=== PATIENT | male | born 1980 | race Caucasian/White ===

== ENCOUNTER 2022-11-22 12:56 | Emergency (ER) | payer MEDICARE, SELFPAY ==
[2022-11-22 13:04] VITALS: BP 125/94; PULSE 109; RESP 20; TEMP 37.3; O2SAT 99; BMI 22.8
--- NOTE | 2022-11-22 13:10 | ED.MALEGU1 ---
HPI - Male Genitourinary General Chief complaint: Urogenital-Male Stated complaint: URINARY RETENTION Time Seen by Provider: 11/22/22 13:10 Source: patient Mode of arrival: Wheelchair Limitations: no limitations History of Present Illness HPI Narrative: Patient presents to emergency department complaining of acute urinary retention. Patient states he has not urinated in the last 12 hours. He denies any fever, chills. Denies any previous history of this. He does not take any new medications. He denies any trauma.Patient has a history of multiple trauma with multiple surgeries in the past. He is on multiple narcotics he states he just has discomfort over his abdomen in the suprapubic area. Related Data Allergies Allergy/AdvReac Type Severity Reaction Status Date / Time Penicillins Allergy Verified 11/22/22 13:02 Review of Systems ROS Status of ROS 10 or more systems reviewed and unremarkable except as noted in history and below [facility] Social History Smoking status: Never smoker Exam Narrative Exam Narrative: Nurses notes and vital signs reviewed and patient is not hypoxic. General: Nontoxic, chronic ill and in no apparent distress. Skin: Warm, dry, no pallor noted. No Rash Head: Normocephalic, atraumatic. Neck: Supple, non-tender. Eye: Pupils are equal, round and EOMI. No scleral icterus. Ears, Nose, Mouth, and Throat: TM clear, no posterior oropharynx erythema or nasal mucosal hypertrophy, uvula is mid-line Oral mucosa is moist Cardiovascular: Regular Rate and Rhythm without murmur, gallop or rub. Respiratory: No accessory muscle use or respiratory distress. Lungs are clear to auscultation, no wheezing, rales or rhonchi Chest Wall: no tenderness Back: No midline thoracic or lumbar vertebral tenderness. No CVA tenderness Musculoskeletal: normal ROM, no calf or popliteal tenderness, no lower extremity edema/swelling GI: Abdomen is soft, non-distended. Normal bowel sounds. No masses appreciated. Suprapubic fullness and tenderness to palpation. No rebound, guarding, or rigidity noted. Neurological: A&O x4. No cranial nerve dysfunction observed. No truncal ataxia. Moves all extremities. Sensation intact. Psychiatric: Cooperative and interactive. Normal mood and affect. Constitutional Vital Signs, click to edit/add: Last Vital Signs Temp 99.2 F 11/22/22 13:04 Pulse 100 H 11/22/22 16:09 Resp 14 11/22/22 16:09 BP 135/91 11/22/22 16:09 Pulse Ox 99 11/22/22 16:09 O2 Del Method Room Air 11/22/22 16:09 Course Vital Signs Vital signs: Vital Signs Temperature 99.2 F 11/22/22 13:04 Pulse Rate 109 H 11/22/22 13:04 Respiratory Rate 20 11/22/22 13:04 Blood Pressure 125/94 H 11/22/22 13:04 Pulse Oximetry 99 11/22/22 13:04 Temperature 99.2 F 11/22/22 13:04 Pulse Rate 100 H 11/22/22 16:09 Respiratory Rate 14 11/22/22 16:09 Blood Pressure 135/91 11/22/22 16:09 Pulse Oximetry 99 11/22/22 16:09 Oxygen Delivery Method Room Air 11/22/22 16:09 MDM - Male Genitourinary MDM Narrative Medical decision making narrative: Bladder scan showed over 700 mL. Full catheter was inserted by Kailee and 1000ml straw urine Was obtained. Patient's symptoms improved. He felt much better. Because of the hematuria and the patient continued to complain of pain a CT scan abdomen and pelvis was done which showed nephrolithiasis. Patient advised to keep Rollins. He is able to follow-up as an outpatient with primary care doctor and urology. At this time the patient is without objective evidence of an acute process requiring hospitalization or inpatient management. The patient has remained hemodynamically stable. No additional indication for emergent studies at this time. I answered all questions. Discussed discharge instructions including standard anticipatory guidance and what should prompt a return to the emergency department, including if they get worse are not getting better or develops any new or concerning symptoms. I've given them specific time frame in which to follow-up, and who to follow-up with. The patient demonstrates understanding. Patient is nontoxic and stable for discharge with outpatient follow-up. This note was created with the assistance of a speech recognition program. Although the intention is to generate documents that actually reflects the content of the visit, no guarantees can be provided that every mistake has been identified and corrected by editing. Differential Diagnosis Differential diagnosis: Likely urinary tract infection, urethritis and acute retention of urine Lab Data Attestation: I reviewed the patient's lab results. Labs: Lab Results 11/22/22 11/22/22 Range/Units 13:35 14:27 WBC 12.4 H (4.0-11.0) 10^3/uL RBC 3.77 L (4.70-6.10) 10^6/uL Hgb 11.0 L (14.0-18.0) g/dL Hct 33.5 L (42.0-54.0) % MCV 88.9 (80.0-94.0) fL MCH 29.2 (25.9-34.0) pg MCHC 32.8 (29.9-35.2) g/dL RDW 14.0 (11.0-15.0) % Plt Count 301 (150-450) 10^3/uL MPV 9.8 (9.5-13.5) fL Neut % (Auto) 72.8 (43.0-75.0) % Lymph % (Auto) 15.8 L (20.5-60.0) % [place] % (Auto) 5.9 (1.7-12.0) % Eos % (Auto) 4.7 (0.9-7.0) % Baso % (Auto) 0.4 (0.2-2.0) % Neut # (Auto) 9.0 H (1.4-6.5) 10^3/uL Lymph # (Auto) 2.0 (1.2-3.8) 10^3/uL [place] # (Auto) 0.7 (0.3-0.8) 10^3/uL Eos # (Auto) 0.6 (0.0-0.7) 10^3/uL Baso # (Auto) 0.1 (0.0-0.1) 10^3/uL Abs Immat Gran (auto) 0.05 H (0.00-0.03) 10^3/uL Imm/Tot Granulo (auto) 0.4 (0.0-0.5) % Sodium 137 (136-145) mmol/L Potassium 4.1 (3.5-5.1) mmol/L Chloride 103 (98-107) mmol/L Carbon Dioxide 27.0 (21.0-32.0) mmol/L Anion Gap 11.1 BUN 40.0 H (7.0-18.0) mg/dL Creatinine 1.90 H (0.70-1.30) mg/dL Est GFR ( Amer) 48 L (>=60) Est GFR (Non-Af Amer) 39 L (>=60) BUN/Creatinine Ratio 21.1 Glucose 111 H (74-106) mg/dL Calcium 8.9 (8.5-10.1) mg/dL Urine Color Yellow (YELLOW) Urine Clarity Clear (CLEAR) Urine pH 5.5 (5.0-9.0) Ur Specific [place] 1.020 (1.005-1.025) Urine Protein Negative (NEG/TRACE) mg/dL Urine Glucose (UA) Negative (NEGATIVE) mg/dL Urine Ketones Negative (NEGATIVE) mg/dL Urine Occult Blood Large A (NEGATIVE) Urine Nitrite Negative (NEGATIVE) Urine Bilirubin Negative (NEGATIVE) Urine Urobilinogen 0.2 (0.2-1.0) EU/dL Ur Leukocyte Esterase Negative (NEGATIVE) Urine RBC 10-20 A (0-2) #/HPF Urine WBC 0-2 A (NONE SEEN) #/HPF Ur Squamous Epith Cells Rare (NONE/RARE) #/LPF Urine Crystals None seen (None Seen) #/HPF Urine Bacteria Trace A (NONE SEEN) #/HPF Urine Casts Seen A (NONE SEEN) #/LPF Hyaline Casts Rare Urine Mucus None seen (NONE SEEN) Ur Culture Indicated? No Discharge Plan Discharge Chief Complaint: Urogenital-Male Clinical Impression: Acute urinary retention, Bilateral nephrolithiasis Patient Disposition: Home, Self-Care Time of Disposition Decision: 15:37 Condition: Good Mode of Transportation: Private Vehicle Instructions: Kidney Stones (ED), Urinary Retention in Men (ED), Rollins Catheter Placement and Care (ED) Stand Alone Forms: Portal Instructions Referrals: Elisabet Engel MD [Primary Care Provider] - 1 week Misael Chua MD [Physician] - 1 week Discharge Date/Time: 11/22/22 16:14
[2022-11-22] MEDS: LIDOCAINE 2% JELLY 10 ML UR (13:30)
[2022-11-22 13:50] LABS: Bilirubin Urine NEGATIVE (NEGATIVE); Blood Urine LARGE (NEGATIVE); Clarity Urine CLEAR (CLEAR); Color Urine YELLOW (YELLOW); Glucose Urine UA NEGATIVE (NEGATIVE); Ketones Urine NEGATIVE (NEGATIVE); Leukocyte Esterase Urine NEGATIVE (NEGATIVE); Nitrite Urine NEGATIVE (NEGATIVE); Protein Urine NEGATIVE (NEG/TRACE); Urine Microscopic Indicated YES; Urobilinogen Urine 0.2 EU/dL (0.2-1.0); pH Urine 5.5 (5.0-9.0)
--- NOTE | 2022-11-22 13:54 | CT_ITS ---
[address] [address] Patient Name: RAJINDER KELLER MRN: [id number] date: 1980 Sex: M Assigned Patient Location: ER Current Patient Location: Accession/Order Number: [id number] Exam Date: 11/22/2022 14:40 Report Date: 11/22/2022 15:13 At the request of: MICHAEL DSOUZA Procedure: CT abdomen pelvis wo con EXAMINATION: CT abdomen pelvis wo con HISTORY: acute urinary retention, hematuria , dysuria COMPARISON: No relevant comparison available. TECHNIQUE: Axial, Coronal, and Sagittal images were obtained without and/or with IV contrast as indicated by examination type. Dose reduction techniques were achieved by using automated exposure control and/or adjustment of mA and/or kV according to patient size and/or use of iterative reconstruction technique. FINDINGS: LUNG BASES: No visible pulmonary or pleural disease. LIVER: No enlargement, atrophy, suspicious density, or significant focal lesion. BILIARY: No dilatation or calcification. PANCREAS: No lesion, fluid collection, or abnormal duct dilatation. SPLEEN: No enlargement or focal lesion. ADRENALS: No mass or enlargement. KIDNEYS: 10 x 9 x 6 mm nonobstructing stone within right renal pelvis. Nonobstructing 1 mm stone within left kidney inferior pole. Unremarkable ureters. BOWEL/MESENTERY: No visible mass, obstruction, or bowel wall thickening. Normal appendix. AORTA/VASCULAR: No aneurysm or dissection. RETROPERITONEUM: No mass or adenopathy. LYMPH NODES: No adenopathy. URINARY BLADDER: Rollins catheter within bladder and moderate amount of free air; likely secondary to introduction of catheter. Mild edema/fat stranding surrounding the bladder, but no bladder wall thickening. Small amount of layering hyperdensity within posterior aspect of the bladder suspected to represent a collection of fine granular stones. PELVIC ORGANS: No visible mass. Pelvic organs appropriate for patient age. ABDOMINAL WALL: No mass or hernia. BONES: No bony lesion or fracture. OTHER: Negative. CT/CT abdomen pelvis wo con IMPRESSION: 1.Nonobstructing right nephrolithiasis.10 mm nonobstructing stone within right renal pelvis which may be intermittently adding to patient's symptoms. 2. Suspect collection of tiny granular stones layering within the urinary bladder. No ureteral stones. 3. Mild edema surrounding the urinary bladder, but no bladder wall thickening. Consider cystitis. Electronically authenticated by: JULIA SMITH Date: 11/22/2022 15:13
[2022-11-22 14:03] LABS: Bacteria Urine TRACE #/HPF (NONE SEEN); Cast Seen? SEEN #/LPF (NONE SEEN); Crystals Seen? None Seen #/HPF (None Seen); Hyaline Casts Urine RARE; Mucus Urine NONE SEEN (NONE SEEN); Squamous Epithelial Cell Urine RARE #/LPF (NONE/RARE); WBC Urine 0-2 #/HPF (NONE SEEN)
[2022-11-22 14:04] LABS: Urine Culture Indicated NO
[2022-11-22 14:52] LABS: Basophils Absolute Auto 0.1 10^3/uL (0.0-0.1); Basophils Percent Auto 0.4 % (0.2-2.0); Eosinophils Absolute Auto 0.6 10^3/uL (0.0-0.7); Eosinophils Percent Auto 4.7 % (0.9-7.0); Hematocrit 33.5 % (42.0-54.0); Immature Granulocytes Abs Auto 0.05 10^3/uL (0.00-0.03); Immature Granulocytes Pct Auto 0.4 % (0.0-0.5); Lymphocytes Percent Auto 15.8 % (20.5-60.0); Mean Corpuscular HGB Conc 32.8 g/dL (29.9-35.2); Mean Corpuscular Hemoglobin 29.2 pg (25.9-34.0); Mean Corpuscular Volume 88.9 fL (80.0-94.0); Mean Platelet Volume 9.8 fL (9.5-13.5); Monocytes Absolute Auto 0.7 10^3/uL (0.3-0.8); Monocytes Percent Auto 5.9 % (1.7-12.0); Neutrophils Percent Auto 72.8 % (43.0-75.0); Platelet Count 301 10^3/uL (150-450); Red Blood Count 3.77 10^6/uL (4.70-6.10); White Blood Count 12.4 10^3/uL (4.0-11.0)
[2022-11-22 14:59] LABS: Anion Gap 11.1; BUN Creatinine Ratio 21.1; Calcium 8.9 mg/dL (8.5-10.1); Chloride 103 mmol/L (98-107); Estimated GFR (African America 48 (>=60); Estimated GFR (Non-African Ame 39 (>=60); Glucose 111 mg/dL (74-106); Potassium 4.1 mmol/L (3.5-5.1); Sodium 137 mmol/L (136-145)
[2022-11-22 16:09] VITALS: BP 135/91; PULSE 100; RESP 14; O2SAT 99
== END 2022-11-22 16:14 | disposition home or self-care (01) ==
PROVIDERS: Emergency Provider Emergency Medicine; PCP Family Medicine
DX: R33.9 Retention of urine, unspecified (principal); N20.0 Calculus of kidney
CPT/HCPCS: 36415; 51798; 74176; 80048; 81001; 85025; 99284

== ENCOUNTER 2022-12-10 09:11 | Outpatient (OUT) | payer MEDICARE, SELFPAY ==
--- NOTE | 2022-12-10 09:18 | XR_ITS ---
The [address] [address] Patient Name: RAJINDER KELLER MRN: [id number] date: 1980 Sex: M Assigned Patient Location: RAD Current Patient Location: RAD Accession/Order Number: [id number] Exam Date: 12/10/2022 09:20 Report Date: 12/10/2022 09:44 At the request of: RACQUEL CAMILO Procedure: XR abdomen 1V EXAM: XR abdomen 1V HISTORY: Kidney Stone N20.0 COMPARISON: None. TECHNIQUE: AP view of the abdomen. FINDINGS: Nonobstructive bowel gas pattern is noted. There is no suspicious calcification. The osseous structures are intact. XR/XR abdomen 1V IMPRESSION: Nonobstructive bowel gas pattern. Electronically authenticated by: NELI HENNESSY Date: 12/10/2022 09:44
== END 2022-12-10 09:12 | disposition home or self-care (01) ==
LOC: RAD 09:11
PROVIDERS: PCP Family Medicine; Visit Provider Urology
DX: N20.0 Calculus of kidney (principal)
CPT/HCPCS: 74018

== ENCOUNTER 2022-12-30 12:29 | Outpatient (OUT) | payer MEDICARE, SELFPAY ==
--- NOTE | 2022-12-30 13:14 | ECG_ITS ---
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
[2022-12-30 13:34] LABS: Basophils Percent Auto 0.4 % (0.2-2.0); Eosinophils Percent Auto 0.4 % (0.9-7.0); Hematocrit 34.7 % (42.0-54.0); Hemoglobin 11.3 g/dL (14.0-18.0); Immature Granulocytes Abs Auto 0.02 10^3/uL (0.00-0.03); Immature Granulocytes Pct Auto 0.2 % (0.0-0.5); Lymphocytes Absolute Auto 1.6 10^3/uL (1.2-3.8); Lymphocytes Percent Auto 14.8 % (20.5-60.0); Mean Corpuscular HGB Conc 32.6 g/dL (29.9-35.2); Mean Corpuscular Hemoglobin 29.5 pg (25.9-34.0); Mean Corpuscular Volume 90.6 fL (80.0-94.0); Mean Platelet Volume 9.3 fL (9.5-13.5); Monocytes Absolute Auto 0.6 10^3/uL (0.3-0.8); Monocytes Percent Auto 5.5 % (1.7-12.0); Neutrophils Absolute Auto 8.5 10^3/uL (1.4-6.5); Neutrophils Percent Auto 78.7 % (43.0-75.0); Platelet Count 426 10^3/uL (150-450); Red Blood Count 3.83 10^6/uL (4.70-6.10); Red Cell Distribution Width 13.5 % (11.0-15.0); White Blood Count 10.8 10^3/uL (4.0-11.0)
[2022-12-30 13:48] LABS: INR 1.04; Partial Thromboplastin Time 29.9 sec (22.3-36.2)
[2022-12-30 14:39] LABS: Anion Gap 12.9; BUN Creatinine Ratio 16.2; Calcium 9.5 mg/dL (8.5-10.1); Carbon Dioxide 26.1 mmol/L (21.0-32.0); Chloride 104 mmol/L (98-107); Estimated GFR (African America >60 (>=60); Estimated GFR (Non-African Ame >60 (>=60); Glucose 132 mg/dL (74-106); Sodium 139 mmol/L (136-145)
== END 2022-12-30 12:30 | disposition home or self-care (01) ==
LOC: PST 12:30
PROVIDERS: PCP Family Medicine; Visit Provider Urology
DX: Z01.810 Encounter for preprocedural cardiovascular examination (principal); Z01.812 Encounter for preprocedural laboratory examination; N20.0 Calculus of kidney; R33.9 Retention of urine, unspecified; F41.9 Anxiety disorder, unspecified; G89.29 Other chronic pain
CPT/HCPCS: 80048; 85025; 85610; 85730; 93005

== ENCOUNTER 2023-01-09 08:02 | Outpatient (OUT) | payer MEDICARE, SELFPAY ==
--- NOTE | 2023-01-09 09:05 | CA_ITS ---
Patient: RAJINDER KELLER Exam Date: 01/09/2023 : 1980 Gender:M Ordering : YANELY BENÍTEZ Admission #: [id number] Family : DR NarvaezMisael Chua . Order #: [id number] CLICK HERE TO VIEW EXAM ECHOCARDIOGRAM REPORT PROCEDURE: CA ECHO DOPPLER COMPLETE INDICATIONS: Tachycardia COMPARISON: None. DESCRIPTION: COMPLETE ECHOCARDIOGRAM Real-time transthoracic echocardiography with 2D, M-mode, spectral and color flow Doppler performed. QUALITY: Technical quality was good. LEFT VENTRICLE: Normal chamber size. Normal left ventricular wall thickness. LV EF: Global left ventricular systolic function is hyperdynamic. Calculated left ventricular ejection fraction is 69%. DIASTOLIC: Normal diastolic function. ATRIAL SEPTUM: Inadequately seen. LEFT ATRIUM: Normal chamber size. RIGHT ATRIUM: Normal chamber size. RIGHT VENTRICLE: Normal chamber size. Normal right ventricular systolic function. TRICUSPID VALVE: Normal mobility and thickness. No stenosis with trivial regurgitation. No evidence of pulmonary hypertension. RVSP 20mmHg MITRAL VALVE: Normal mobility and thickness. No evidence of mitral valve stenosis. There is no mitral annular calcification. Mild mitral regurgitation. AORTIC VALVE: Normal trileaflet appearance. No visible sclerosis. Normal leaflet mobility. No evidence of aortic valve stenosis. No aortic regurgitation. AORTIC ROOT: Normal diameter and appearance. PULMONIC VALVE: Normal thickness and mobility. No stenosis. No regurgitation. PERICARDIUM: No evidence of pericardial effusion. IVC: Collapses with inspirations. Normal size. CONCLUSION: 1. Global left ventricular systolic function is hyperdynamic; visually estimated ejection fraction is 65 to 70% 2. Normal diastolic function 3. Right ventricle is normal in size and systolic function 4. Mild mitral regurgitation Adult Echocardiography Procedure Report Left Ventricle LVEDD (3.7 - 5.6 cm): 4.03 cm LVESD (2.2 - 4.0 cm): 2.55 cm LVIVS thickness (0.6 - 1.2 cm): 0.88 cm LVPW thickness (0.5 - 1.0 cm): 0.82 cm e': 0.13 m/s E - e': 4.67 LVOT Max Gradient: 1.75 mm[Hg] LVOT Area (cm2): 0.66 m/s Peak Velocity (LVOT): 0.66 m/s Mean Velocity (LVOT): 0.45 m/s LVOT Diameter 2.20 cm Left Ventricular Ejection Fraction: 68.81 % Left Atrium LA Volume Index (2D A2C): 26.87 ml/m2 Left Atrium Systolic Dimension: 2.99 cm Mitral Valve MV E to A Ratio: 1.41 Mitral Valve A-Wave Peak Velocity: 0.44 m/s Mitral Valve E-Wave Peak Velocity: 0.62 m/s Right Ventricle RV Internal Diastolic Dimension: 3.05 cm Aorta AO Root Diam: 2.92 cm Ascending Ao Diam: 2.88 cm Aortic Valve AoV Area (Peak Irvin): 3.07 cm2, 2.88 cm2 AoV Area (VTI): 2.85 cm2, 2.73 cm2 Peak Velocity(Antegrade Flow): 0.87 m/s, 0.76 m/s Peak Gradient(Antegrade Flow): 3.04 mm[Hg], 2.34 mm[Hg] Mean Velocity(Antegrade Flow): 0.62 m/s, 0.58 m/s Mean Gradient(Antegrade Flow): 1.74 mm[Hg], 1.49 mm[Hg] Velocity Time Integral: 19.36 cm, 17.79 cm Tricuspid Valve Peak Velocity (Regurgitant Flow): 2.07 m/s, 1.76 m/s, 1.53 m/s Pulmonic Valve Peak Velocity: 0.71 m/s Peak Gradient: 2.01 mm[Hg], 2.04 mm[Hg] Right Atrium Right Atrium Systolic Pressure: 40.06 ml, 40.06 ml Dictated by: Jose Holder M.D. on 01/10/2023 at 10:10 Approved by: Jose Holder M.D. on 01/10/2023 at 10:12
== END 2023-01-09 08:03 | disposition home or self-care (01) ==
LOC: CARD 08:02
PROVIDERS: PCP Family Medicine; Visit Provider Internal Medicine Cardiovascular Disease
DX: Z01.810 Encounter for preprocedural cardiovascular examination (principal); R00.0 Tachycardia, unspecified; R94.31 Abnormal electrocardiogram [ECG] [EKG]
CPT/HCPCS: 93306

== ENCOUNTER 2023-01-23 08:23 | Day surgery (SDC) | payer MEDICARE, SELFPAY ==
[2022-12-30 13:28] VITALS: BP 120/73; PULSE 126; RESP 22; TEMP 36.8; O2SAT 96; BMI 21.2
[2023-01-23] VITALS (32 sets, daily range): BP systolic 138–157; BP diastolic 90–107; PULSE 67–109; RESP 7–31; TEMP 36.2–37; O2SAT 93–100
--- NOTE | 2023-01-23 09:10 | PC.NURSE ---
Has had mariscal catheter in since 11/18/2022 and it was changed on 12/18/2022
[2023-01-23] MEDS: LACTATED RINGER'S SOLUTION 1,000 ML 50 ML IV ×2 (09:13→14:24)
[2023-01-23] MEDS: CIPROFLOXACIN IN 5 % DEXTROSE 400 MG/200 ML PIGGYBACK 200 MG IV (09:28)
[2023-01-23] MEDS: IOHEXOL 240 MG/ML - 10 ML VIAL INJ (10:55)
--- NOTE | 2023-01-23 11:12 | PM.URSON ---
Urology Surgery Operative Note Operative Note Procedure Date: 01/23/23 Time Out Performed: yes Pre-op Diagnosis: right nephrolithiasis and urinary retention Post-op Diagnosis: same as pre-op Procedures performed: #1. Cystoscopy. #2. Right retrograde pyelogram. #3. Right rigid ureteral dilation. #4. Right ureteroscopy. #5. Right pyeloscopy. #6. Holmium laser lithotripsy of large right renal calculus. #7. Stone fragment basket extraction. #8. Placement of 6 Micronesian variable length right ureteral stent Anesthesia: General-LMA Primary Surgeon: Misael Chua Complications: non- Estimated blood loss (mL): 10 Findings: #1. Wide open urethra and prostate. #2. Large right renal calculus. Specimens: right renal calculus fragments Indications for Procedures: this gentleman has gone into acute urinary retention. He has a catheter in. He was unable to get urodynamics due to difficulty placing the catheter. He also has a large right renal pelvis stone. He now presents for cystoscopy, possible urethral dilation, ureteroscopy, pyeloscopy, laser lithotripsy and right stent placement. He has signed an informed consent for these procedures after all the risks were explained. Detailed description of Procedure: The patient was brought to the operating room and placed on the operating room table in the supine position. SCDs were placed on the lower extremities and turned on and functioning during the entire case. Timeout was done by all parties in the room. We all agreed upon the patient's identification and the planned procedures for this patient. Genn. anesthesia was then administered. The patient was then repositioned into the modified dorsal lithotomy position. All pressure points were satisfactorily padded. Genitalia were sterilely prepped and draped in usual fashion.I started by passing a 22 Micronesian Olympus cystoscope per urethra and into the bladder. His anterior urethra was wide open. The prostatic urethra was short and wide open. I presume that the patient was doing Valsalva maneuver when people had difficulty getting his catheter in and urodynamics. Nevertheless, I then scoped the bladder and it was entirely normal aside from quite a bit of inflammatory debris in the bladder. This was irrigated out. No tumors were noted. I then passed a Glidewire through the scope and cannulated the right ureter. The wire went all way up into the kidney. I then used a 8 and 10 Micronesian rigid dilator to dilate the very tight and narrow distal ureter. The scope was removed. I then used a navigator 02/24 ureteral access sheath and passed this over the wire. Further dilated the distal ureter. The tip of the sheath went up to the L5 level. The stylette and wire were then removed. I then passed a flexible ureteroscope through the access sheath and into the ureter. I ascended up the ureter and then into the kidney. I didn't pyeloscopy and found the large stone within a mid pole calyx. I then passed a 272 ? holmium laser fiber through the scope and made contact with the stone. Laser lithotripsy was then started in the testing mode at 10 W continuously. I had to rapidly go up to 12 W and then ultimately 14 W before fragmentation started. The majority of the stone was dusted. I then used a 0 tip nitinol basket and engaged pieces and extracted them down and out. I went up-and-down the ureter and into the kidney clearing out stone pieces numerous times. Eventually some minor bleeding developed and this blurring our view. I was unable to appreciate any more significant pieces remaining endoscopically. Fluoroscopically, we could not see any true stone remaining. I then brought the scope back to the ureter and then injected contrast through the scope and did a retrograde pyelogram. The scope was then removed. A Glidewire was then passed through the access sheath into the kidney and the sheath was then removed. I then backloaded the cystoscope over the wire and passed it into the bladder. I then slid a 6 Micronesian variable length ureteral stent over the wire up into the kidney. The wire was removed and there were good curls in the kidney and in the bladder. The bladder was drained of its contents and the scope was then removed. He was then transferred to a [facility] bed and wheeled to PACU in stable condition.
[2023-01-23] MEDS: MEPERIDINE HCL/PF 25 MG/ML VIAL IVP (11:25)
[2023-01-23] MEDS: HYDROMORPHONE HCL 1 MG/ML CARTRIDGE INJ ×3 (11:34→12:32)
--- NOTE | 2023-01-23 12:11 | PC.NURSE ---
Patient curreently resting and not moaning. Verbalized he feels like he is coming around. Patient looks comfortable at this time.
[2023-01-23] MEDS: ONDANSETRON PF 4 MG/2 ML VIAL IV (12:24)
[2023-01-23] MEDS: PROMETHAZINE HCL 25 MG/ML VIAL IV (12:58)
[2023-01-30 16:09] LABS: Calcium Oxalate Dihydrate 10 % (.); Calcium Oxalate Monohydrate 90 % (.); Size 4x4 mm (.)
== END 2023-01-23 14:00 | disposition home or self-care (01) ==
PROVIDERS: PCP Family Medicine; Visit Provider Urology
PROC: (CPT 52356; principal; 2023-01-23 09:30)
DX: R33.9 Retention of urine, unspecified (principal); N20.0 Calculus of kidney; F41.9 Anxiety disorder, unspecified; G89.29 Other chronic pain; Z79.899 Other long term (current) drug therapy; F43.10 Post-traumatic stress disorder, unspecified; Z87.891 Personal history of nicotine dependence; I34.0 Nonrheumatic mitral (valve) insufficiency; Z87.440 Personal history of urinary (tract) infections
CPT/HCPCS: 52356; 36415; 74420; 82365; 99999; C1874; J1170; J2704; Q9966

== ENCOUNTER 2023-05-13 07:30 | Inpatient (IN) | payer MEDICARE, SELFPAY ==
[2023-05-13] VITALS (27 sets, daily range): BP systolic 82–123; BP diastolic 52–79; PULSE 89–130; RESP 14–22; TEMP 36.4–38.2; O2SAT 85–98; BMI 22.8; BMI 23.0
--- NOTE | 2023-05-13 07:57 | ECG_ITS ---
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
--- NOTE | 2023-05-13 07:59 | XR_ITS ---
The [address] [address] Patient Name: RAJINDER KELLER MRN: [id number] date: 1980 Sex: M Assigned Patient Location: ER Current Patient Location: ER Accession/Order Number: [id number] Exam Date: 05/13/2023 08:03 Report Date: 05/13/2023 08:24 At the request of: BRE COLIN Procedure: XR chest 1V EXAM: XR chest 1V HISTORY: Cough and hypoxia. COMPARISON: None. TECHNIQUE: AP erect portable chest radiograph performed. FINDINGS: The trachea is midline. The heart size is normal. There is patchy consolidation at the right hilum and within the right upper lobe which in the right clinical setting can be associated with a pneumonia. There is right paratracheal density which may represent consolidation or possibly lymphadenopathy. There is no pleural effusion or pulmonary vascular congestion. There is no pneumothorax or osseous abnormality. XR/XR chest 1V IMPRESSION: There is patchy consolidation at the right hilum and within the right upper lobe which in the right clinical setting can be associated with a pneumonia. There is right paratracheal density which may represent consolidation or possibly lymphadenopathy. If clinical findings are consistent with a pneumonia then appropriate antibiotic treatment and a follow-up chest radiograph to confirm complete resolution recommended. If clinical findings are not consistent with a pneumonia, then a CT examination of the chest with venous contrast would be recommended. Electronically authenticated by: ALBERT MONAE Date: 05/13/2023 08:24
[2023-05-13] MEDS: ACETAMINOPHEN 500 MG TABLET 1000 MG PO (08:12)
[2023-05-13] MEDS: ONDANSETRON PF 4 MG/2 ML VIAL IV (08:12)
[2023-05-13] MEDS: 0.9 % SODIUM CHLORIDE 1,000 ML 999 ML IV (08:12)
[2023-05-13 08:13] LABS: Hematocrit 35.9 % (42.0-54.0); Hemoglobin 11.5 g/dL (14.0-18.0); Mean Corpuscular Hemoglobin 29.3 pg (25.9-34.0); Mean Corpuscular Volume 91.6 fL (80.0-94.0); Mean Platelet Volume 10.1 fL (9.5-13.5); Platelet Count 312 10^3/uL (150-450); Red Blood Count 3.92 10^6/uL (4.70-6.10); Red Cell Distribution Width 13.6 % (11.0-15.0); White Blood Count 9.3 10^3/uL (4.0-11.0)
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
[2023-05-13 08:35] LABS: Band Neutrophils Absolute 1.2 10^3/uL (0.0-0.3); Lymphocytes Absolute Manual 2.41 10^3/uL (1.20-3.80); Metamyelocytes Absolute Manual 0.09; Monocytes Absolute Manual 1.39 10^3/uL (0.30-0.80); Segmented Neut Absolute Manual 4.18 10^3/uL (1.4-6.5)
[2023-05-13 08:42] LABS: Alanine Aminotransferase 29 U/L (16-63); Albumin Globulin Ratio 0.8; Albumin Level 3.3 g/dL (3.4-5.0); Alkaline Phosphatase 39 U/L (46-116); Anion Gap 15.7; Aspartate Amino Transferase 77 U/L (15-37); BUN Creatinine Ratio 19.6; Bilirubin Total 0.6 mg/dL (0.2-1.0); Calcium 8.5 mg/dL (8.5-10.1); Chloride 101 mmol/L (98-107); Estimated GFR (African America 41 (>=60); Estimated GFR (Non-African Ame 33 (>=60); Globulin 3.9 g/dL; Glucose 119 mg/dL (74-106); Potassium 4.7 mmol/L (3.5-5.1); Sodium 137 mmol/L (136-145); Total Protein 7.2 g/dL (6.4-8.2)
[2023-05-13] MEDS: LEVOFLOXACIN IN DEXTROSE 5 % 750 MG/150 ML IV.SOLN 100 MG IV (08:44)
[2023-05-13 08:46] LABS: Influenza Virus A Antigen Negative; Influenza Virus B Antigen Negative; Internal Control Within Normal Limits; SARS-CoV-2 Ag NEGATIVE (NEGATIVE)
[2023-05-13 08:52] LABS: Lactate/Lactic Acid 2.5 mmol/L (0.4-2.0)
[2023-05-13] MEDS: 0.9 % SODIUM CHLORIDE 500 ML 1000 ML IV (09:11)
[2023-05-13] MEDS: ALBUTEROL SULFATE 2.5 MG/3 ML VIAL NEB IH (09:25)
[2023-05-13 09:33] LABS: PROCALCITONIN 18.93 ng/mL (0.00-0.50)
[2023-05-13] MEDS: 0.9 % SODIUM CHLORIDE 500 ML IV (09:53)
[2023-05-13] MEDS: FAMOTIDINE 20 MG TABLET PO (09:53)
[2023-05-13 11:43] LABS: Adenovirus NOT DETECTED (NOT DETECTE); Bordetella parapertussis NOT DETECTED (NOT DETECTE); Coronavirus 229E NOT DETECTED (NOT DETECTE); Coronavirus HKU1 NOT DETECTED (NOT DETECTE); Coronavirus NL63 NOT DETECTED (NOT DETECTE); Coronavirus OC43 NOT DETECTED (NOT DETECTE); Human Metapneumovirus NOT DETECTED (NOT DETECTE); Human Rhinovirus/Enterovirus NOT DETECTED (NOT DETECTE); Influenza A NOT DETECTED (NOT DETECTE); Influenza B NOT DETECTED (NOT DETECTE); Mycoplasma pneumoniae NOT DETECTED (NOT DETECTE); Parainfluenza Virus 1 NOT DETECTED (NOT DETECTE); Parainfluenza Virus 2 NOT DETECTED (NOT DETECTE); Parainfluenza Virus 3 NOT DETECTED (NOT DETECTE); Parainfluenza Virus 4 NOT DETECTED (NOT DETECTE); Respiratory Syncytial Virus NOT DETECTED (NOT DETECTE); SARS-CoV-2 NOT DETECTED (NOT DETECTE)
[2023-05-13 12:30] LABS: PROCALCITONIN 14.69 ng/mL (0.00-0.50)
--- NOTE | 2023-05-13 12:31 | CM.NOTE ---
Rounds made with Dr. Berrios, discussed diagnosis and plan of care with pt. Pt does verbalize concern for home medications to be reordered d/t chronic pain and anxiety.
[2023-05-13] MEDS: GABAPENTIN 400 MG CAPSULE PO ×2 (13:45→20:23)
[2023-05-13] MEDS: GUAIFENESIN 600 MG TAB.ER.12H PO ×2 (13:45→20:23)
[2023-05-13] MEDS: DIAZEPAM 5 MG TABLET PO ×2 (13:45→20:23)
[2023-05-13] MEDS: MORPHINE SULFATE 15 MG TABLET.ER 60 MG PO (13:45)
[2023-05-13] MEDS: METHYLPREDNISOLONE SOD SUCC PF 125 MG/2 ML VIAL IVP (13:45)
[2023-05-13] MEDS: LACTATED RINGER'S SOLUTION 1,000 ML 125 ML IV ×2 (13:46→20:23)
[2023-05-13] MEDS: 0.9 % SODIUM CHLORIDE 1,000 ML 1000 ML IV ×2 (14:04→15:43)
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
[2023-05-13] MEDS: IPRATROPIUM/ALBUTEROL SULFATE 3 ML AMPUL.NEB IH ×3 (15:34→23:19)
--- NOTE | 2023-05-13 15:53 | US_ITS ---
[address] [address] Patient Name: RAJINDER KELLER MRN: [id number] date: 1980 Sex: M Assigned Patient Location: [facility] Current Patient Location: Accession/Order Number: [id number] Exam Date: 05/13/2023 16:45 Report Date: 05/13/2023 22:51 At the request of: DOMINGA ORTIZ Procedure: US renal BI EXAM: US renal BI HISTORY: ELLEN, recent hx of obstructive uropathy/lithiasis COMPARISON: None. TECHNIQUE: Ultrasound examination of the kidneys and urinary bladder was performed using Color Doppler. FINDINGS: The right kidney is normal in cortical echogenicity and corticomedullary differentiation without cortical thinning. The right kidney is normal in size measuring 10.7 cm in length. There is no focal renal mass. There is no hydronephrosis. There are nonobstructing renal calculi measuring up to 0.4 cm. The left kidney is normal in cortical echogenicity and corticomedullary differentiation without cortical thinning. The left kidney is normal in size measuring 11.3 cm in length. There is no focal renal mass or calcification. There is no hydronephrosis. The urinary bladder appears within normal limits. US/US renal BI IMPRESSION: 1. No hydronephrosis. 2. Nonobstructive right renal calculi. Electronically authenticated by: Joy RAMOS Date: 05/13/2023 22:51
[2023-05-13 16:08] LABS: Lactate/Lactic Acid 2.7 mmol/L (0.4-2.0)
[2023-05-13] MEDS: ENOXAPARIN SODIUM 40 MG/0.4 ML SYRINGE SUBQ (17:31)
[2023-05-13] MEDS: ERTAPENEM SODIUM 1 GM in 0.9 % SODIUM CHLORIDE 50 ML IV (17:31)
[2023-05-13] MEDS: METHYLPREDNISOLONE SOD SUCC PF 40 MG/ML VIAL IVP ×2 (17:31→23:56)
[2023-05-13] MEDS: ZOLPIDEM TARTRATE 10 MG TABLET PO (20:23)
[2023-05-13] MEDS: ALPRAZOLAM 1 MG TABLET PO (20:23)
[2023-05-13 21:25] LABS: Bilirubin Urine NEGATIVE (NEGATIVE); Blood Urine TRACE-I (NEGATIVE); Clarity Urine CLEAR (CLEAR); Color Urine LT. YELLOW (YELLOW); Glucose Urine UA 250 mg/dL (NEGATIVE); Ketones Urine NEGATIVE (NEGATIVE); Leukocyte Esterase Urine NEGATIVE (NEGATIVE); Nitrite Urine NEGATIVE (NEGATIVE); Protein Urine NEGATIVE (NEG/TRACE); Specific Gravity Urine <=1.005 (1.005-1.025); Urobilinogen Urine 0.2 EU/dL (0.2-1.0); pH Urine 5.5 (5.0-9.0)
[2023-05-13 21:31] LABS: Urine Microscopic Indicated YES
[2023-05-13 21:37] LABS: Bacteria Urine NONE SEEN #/HPF (NONE SEEN); Cast Seen? NONE SEEN #/LPF (NONE SEEN); Crystals Seen? None Seen #/HPF (None Seen); Mucus Urine NONE SEEN (NONE SEEN); RBC Urine 0-2 #/HPF (0-2); Squamous Epithelial Cell Urine NONE SEEN #/LPF (NONE/RARE); Urine Culture Indicated NO; WBC Urine NONE SEEN #/HPF (NONE SEEN)
[2023-05-13 22:26] LABS: Lactate/Lactic Acid 4.1 mmol/L (0.4-2.0)
[2023-05-13] MEDS: BUDESONIDE 0.5 MG/2 ML AMPULE NEB IH (23:19)
[2023-05-14] VITALS (45 sets, daily range): BP systolic 102–128; BP diastolic 53–72; PULSE 97–138; RESP 10–35; TEMP 36.2–37.1; O2SAT 84–100
--- NOTE | 2023-05-14 00:07 | PC.NURSE ---
enter room of pt with nurse, verify pt sleeping and snoring heavily, witness return of 4 MS OxyContin 15 mg tabs to pix.
[2023-05-14] MEDS: ALBUTEROL SULFATE 2.5 MG/3 ML VIAL NEB IH (01:51)
--- NOTE | 2023-05-14 02:01 | XR_ITS ---
The [address] [address] Patient Name: RAJINDER KELLER MRN: [id number] date: 1980 Sex: M Assigned Patient Location: [facility] Current Patient Location: ICU Accession/Order Number: [id number] Exam Date: 05/14/2023 02:12 Report Date: 05/14/2023 03:00 At the request of: LACEY VANEGAS Procedure: XR chest 1V EXAM: XR chest 1V HISTORY: pneumonia COMPARISON: Chest radiograph dated 05/13/2023. TECHNIQUE: One view of the chest was obtained. FINDINGS: The cardiac silhouette is normal in size. There is consolidation in the medial right upper lung with mixed interstitial and airspace opacities in the right lung, improved compared to the prior examination. There is no significant pneumothorax or pleural effusion. No acute osseous abnormality is seen. XR/XR chest 1V IMPRESSION: 1. Consolidation in the medial right upper lung with mixed interstitial and airspace opacities in the right lower concerning for multifocal pneumonia. Attention on the ordered CT chest examination. Electronically authenticated by: Joy RAMOS Date: 05/14/2023 03:00
[2023-05-14] MEDS: FUROSEMIDE 20 MG/2 ML VIAL IVP (02:27)
[2023-05-14 02:41] LABS: ABG PCO2 46.5 mmHg (35.0-45.0); Allen Test POSITIVE (POSITIVE); Base Excess ABG -5.7 mmol/L (-2.0-2.0); HCO3 ABG 21.3 mmol/L (22.0-26.0); O2 Mode NASAL CANNULA; Oxygen Saturation ABG 96.2 %; PO2 ABG 80.7 mmHg (80.0-100.0)
[2023-05-14 02:42] LABS: Liters per Minute 6; Puncture Site L RADIAL; pH ABG 7.268 (7.350-7.450)
--- NOTE | 2023-05-14 02:57 | PC.NURSE ---
Patient transferred to ICU room 271 via bed report given to Mary RYAN. Patient transported with Telemetry, oxygen, POX nurse and respiratory therapist. Patient notified per self to his mother about transfer.
[2023-05-14] MEDS: IPRATROPIUM/ALBUTEROL SULFATE 3 ML AMPUL.NEB IH ×6 (03:53→23:53)
[2023-05-14 04:37] LABS: Hematocrit 26.2 % (42.0-54.0); Hemoglobin 8.2 g/dL (14.0-18.0); Immature Granulocytes Abs Auto 0.02 10^3/uL (0.00-0.03); Immature Granulocytes Pct Auto 0.3 % (0.0-0.5); Lymphocytes Absolute Auto 0.6 10^3/uL (1.2-3.8); Lymphocytes Percent Auto 10.1 % (20.5-60.0); Mean Corpuscular HGB Conc 31.3 g/dL (29.9-35.2); Mean Corpuscular Hemoglobin 29.2 pg (25.9-34.0); Mean Corpuscular Volume 93.2 fL (80.0-94.0); Mean Platelet Volume 10.2 fL (9.5-13.5); Monocytes Absolute Auto 0.4 10^3/uL (0.3-0.8); Monocytes Percent Auto 7.3 % (1.7-12.0); Neutrophils Percent Auto 82.3 % (43.0-75.0); Platelet Count 178 10^3/uL (150-450); Red Blood Count 2.81 10^6/uL (4.70-6.10); Red Cell Distribution Width 14.3 % (11.0-15.0)
[2023-05-14 05:10] LABS: Alanine Aminotransferase 29 U/L (16-63); Albumin Globulin Ratio 0.7; Albumin Level 2.6 g/dL (3.4-5.0); Alkaline Phosphatase 31 U/L (46-116); Anion Gap 11.4; Aspartate Amino Transferase 66 U/L (15-37); BUN Creatinine Ratio 14.9; Bilirubin Total 0.2 mg/dL (0.2-1.0); Calcium 8.9 mg/dL (8.5-10.1); Carbon Dioxide 24.3 mmol/L (21.0-32.0); Chloride 108 mmol/L (98-107); Estimated GFR (African America >60 (>=60); Estimated GFR (Non-African Ame 53 (>=60); Globulin 3.5 g/dL; Glucose 213 mg/dL (74-106); Potassium 3.7 mmol/L (3.5-5.1); Sodium 140 mmol/L (136-145); Total Protein 6.1 g/dL (6.4-8.2)
[2023-05-14 05:20] LABS: PROCALCITONIN 11.55 ng/mL (0.00-0.50)
[2023-05-14] MEDS: METHYLPREDNISOLONE SOD SUCC PF 40 MG/ML VIAL IVP ×4 (05:26→23:48)
[2023-05-14 06:03] LABS: Lactate/Lactic Acid 4.2 mmol/L (0.4-2.0)
--- NOTE | 2023-05-14 06:53 | RESP.RT ---
titrated down to 30%
--- NOTE | 2023-05-14 08:00 | CT_ITS ---
[address] [address] Patient Name: RAJINDER KELLER MRN: [id number] date: 1980 Sex: M Assigned Patient Location: ICU Current Patient Location: ICU Accession/Order Number: [id number] Exam Date: 05/14/2023 08:25 Report Date: 05/14/2023 08:56 At the request of: DOMINGA ORTIZ Procedure: CT chest w con EXAMINATION: CT chest w con HISTORY: Hypoxia, PNA, r/o mass COMPARISON: 05/14/2023 chest x-ray TECHNIQUE: Multi-planar CT images were created with IV contrast. Axial, Coronal, and Sagittal images. Dose reduction techniques were achieved by using automated exposure control and/or adjustment of mA and/or kV according to patient size and/or use of iterative reconstruction technique. FINDINGS: LUNGS: Moderate bilateral groundglass, patchy, nodular and masslike densities most significant throughout the right upper lobe with the largest masslike solid area of consolidation measuring 3.1 cm medial right upper lobe axial image 18. Linear opacities in the right lower lobe, atelectasis is favored. Masslike density in the left lower lobe measuring 1.2 cm axial image 57 PLEURA: No mass, effusion, or pneumothorax. VASCULATURE: Suboptimal opacification of central pulmonary arterial tree. No filling defect to suggest a pulmonary embolus JULIETTE: No mass or adenopathy. MEDIASTINUM: No mass or adenopathy. CARDIAC: No enlargement or pericardial thickening. No coronary atherosclerosis AORTA: No aneurysm or dissection. CHEST WALL: No mass or axillary adenopathy. BONES: No bone lesion or fracture. LIMITED ABDOMEN: Few scattered hypoattenuation of the liver suggests hepatic steatosis OTHER: Negative. CT/CT chest w con IMPRESSION: Multifocal infiltrates throughout the lungs most significant in the right upper lobe. Favor multifocal pneumonia. Follow-up after resolution is required to document resolution and exclude underlying mass Electronically authenticated by: DAWNA MESSER Date: 05/14/2023 08:56
--- NOTE | 2023-05-14 08:18 | P.PN_ITS ---
Progress Note: Subjective Subjective Interval history: per overnight and check out patient developed increased work of breathing and saturations were dropping on 3 L nasal cannula patient was transferred to the ICU for higher level of care. Chest x-ray was obtained at that time. He was also placed on Vapotherm. This morning patient is back down to 3 L nasal cannula oxygen. He appears comfortable, when he does talk he does become more short of breath. He denies any chest pain, fevers or chills. His mother and father are present at bedside at the time of exam. He had a CTA of the chest which was negative for pulmonary embolism findings were discussed with patient including multi-focal pneumonia present. Also renal ultrasound with right nonobstructive stones also discussed with patient today. Blood pressures are stable, patient is slightly tachycardic but overall feels improved since yesterday per patient. No other issues or concerns at this time. Exam Narrative Exam Narrative: General: Patient is alert, and oriented to person, place and time, anxiousness and some difficulty breathing when talking Skin: no visible rashes, or ulcers Head: atraumatic, acephalic Eyes: PERRLA, no nystagmus present, conjunctiva clear, no scleral icterus Neck: no masses palpated, normal thyroid, no JVD or audible carotid bruits Heart: Normal rate and rhythm, no murmurs/rubs/gallops Lungs: audible wheezes all lung juarez Abdomen: Normal audible bowel sounds, no distension, No palpable masses, no organomegaly, no rebound/guarding/ or rigidity Musculoskeletal: no swelling bilateral lower extremities Neuro: CN II-X grossly intact Constitutional Vital Signs, click to edit/add: Last Vital Signs Temp 97.4 F L 05/14/23 07:54 Pulse 112 H 05/14/23 08:00 Resp 18 05/14/23 08:00 BP 128/70 05/14/23 07:54 Pulse Ox 94 L 05/14/23 07:54 O2 Del Method Nasal Cannula 05/14/23 07:54 O2 Flow Rate 2 05/14/23 07:54 FiO2 40 05/14/23 06:46 Progress Note: Objective Labs Labs: Short CBC 05/14/23 Range/Units 04:03 WBC 6.0 (4.0-11.0) 10^3/uL Hgb 8.2 L (14.0-18.0) g/dL Hct 26.2 L (42.0-54.0) % Plt Count 178 (150-450) 10^3/uL BMP 05/13/23 05/14/23 07:50 04:03 Sodium 137 140 Potassium 4.7 3.7 Chloride 101 108 H Carbon Dioxide 25.0 24.3 BUN 43.0 H 22.0 H Creatinine 2.19 H 1.48 H Glucose 119 H 213 H Calcium 8.5 8.9 Liver Function 05/13/23 05/14/23 Range/Units 07:50 04:03 Total Bilirubin 0.6 0.2 (0.2-1.0) mg/dL AST 77 H 66 H (15-37) U/L ALT 29 29 (16-63) U/L Alkaline Phosphatase 39 L 31 L (46-116) U/L Albumin 3.3 L 2.6 L (3.4-5.0) g/dL Urine 05/13/23 Range/Units 21:15 Urine Color Lt. yellow (YELLOW) Urine Clarity Clear (CLEAR) Urine pH 5.5 (5.0-9.0) Ur Specific [place] <=1.005 A (1.005-1.025) Urine Protein Negative (NEG/TRACE) mg/dL Urine Glucose (UA) 250 A (NEGATIVE) mg/dL Progress Note: A&P Assessment and Plan (1) Sepsis: Assessment and Plan: patient still with elevated lactate 3.4, despite 30ml/kg fluids and antibiotics. No elevated white count, no hypotension. afebrile. continue Ertapenem. Cultures pending. UA normal, renal ultrasound normal. likely source is CAP. Qualifiers: Sepsis type: sepsis due to unspecified organism Sepsis acute organ dysfunction status: without acute organ dysfunction Qualified Code(s): A41.9 - Sepsis, unspecified organism (2) Community acquired pneumonia: Assessment and Plan: continue Invanz, scheduled duonebs, prn albuterol, viral respiratory panel negative. Qualifiers: Laterality: right Lung location: upper lobe of lung Qualified Code(s): J18.9 - Pneumonia, unspecified organism (3) Acute asthma exacerbation: Assessment and Plan: continue solumedrol and pulmicort Qualifiers: Asthma severity: mild Asthma persistence: intermittent Qualified Code(s): J45.21 - Mild intermittent asthma with (acute) exacerbation (4) Acute respiratory failure: Assessment and Plan: secondary to pneumonia. continue oxygen therapy, OPEP Qualifiers: Respiratory failure complication: hypoxia and hypercapnia Qualified Code(s): J96.01 - Acute respiratory failure with hypoxia; J96.02 - Acute respiratory failure with hypercapnia (5) Acute kidney injury: Assessment and Plan: IMproving with IVF, normal UA and normal us renal (6) PTSD (post-traumatic stress disorder): Assessment and Plan: continue home meds (7) Insomnia: Assessment and Plan: continue ambien (8) Chronic pain: Assessment and Plan: continue morphine and oxycodone (9) Blind: Plan patient is a full code continue lovenox for DVT prophylaxis due to patient's decompensation was transferred to ICU status
[2023-05-14] MEDS: GUAIFENESIN 600 MG TAB.ER.12H PO ×2 (08:42→20:40)
[2023-05-14] MEDS: DIAZEPAM 5 MG TABLET PO ×2 (08:42→20:40)
[2023-05-14] MEDS: GABAPENTIN 400 MG CAPSULE PO ×2 (08:42→20:40)
[2023-05-14] MEDS: ALPRAZOLAM 1 MG TABLET PO ×2 (08:47→20:41)
[2023-05-14 09:53] LABS: Lactate/Lactic Acid 3.2 mmol/L (0.4-2.0)
[2023-05-14] MEDS: MORPHINE SULFATE 15 MG TABLET.ER 60 MG PO ×2 (10:47→23:46)
[2023-05-14] MEDS: BUDESONIDE 0.5 MG/2 ML AMPULE NEB IH ×2 (11:02→19:53)
[2023-05-14] MEDS: OMEPRAZOLE 40 MG CAPSULE.DR PO (11:15)
[2023-05-14 12:53] LABS: Lactate/Lactic Acid 3.7 mmol/L (0.4-2.0)
--- NOTE | 2023-05-14 13:18 | CM.NOTE ---
Rounds made with Dr. Berrios, pt verbalizes feeling much better. Pt down to 2L NC with oxygen. No discharge today.
--- NOTE | 2023-05-14 14:41 | CM.NOTE ---
Important Message From Medicare discussed with pt, pt verbalizes understanding and signs paper. Original given to to pt and copy placed on pt's chart.
--- NOTE | 2023-05-14 15:02 | RESP.RT ---
Placed on room air
[2023-05-14 15:53] LABS: Lactate/Lactic Acid 3.9 mmol/L (0.4-2.0)
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
[2023-05-14] MEDS: OXYCODONE HCL 15 MG TABLET PO (17:25)
[2023-05-14] MEDS: BENZOCAINE/MENTHOL SORE THROAT LOZENGE 1 LOZENGE PO ×2 (17:25→20:43)
[2023-05-14] MEDS: CALCIUM CARBONATE 500 MG (200MG ELEMENTAL) TAB CHEW PO (17:25)
[2023-05-14] MEDS: CEFTAZIDIME 2,000 MG in 0.9 % SODIUM CHLORIDE 100 ML 200 MG IV (17:26)
[2023-05-14] MEDS: ENOXAPARIN SODIUM 40 MG/0.4 ML SYRINGE SUBQ (17:26)
[2023-05-14] MEDS: 0.9 % SODIUM CHLORIDE 1,000 ML 50 ML IV (17:26)
[2023-05-14] MEDS: VANCOMYCIN HCL 1,000 MG in 0.9 % SODIUM CHLORIDE 250 ML 250 MG IV (17:54)
[2023-05-14] MEDS: ZOLPIDEM TARTRATE 10 MG TABLET PO (20:42)
[2023-05-15] VITALS (20 sets, daily range): BP systolic 129–130; BP diastolic 54–85; PULSE 108–129; RESP 11–25; TEMP 36.8; O2SAT 91–99
[2023-05-15] MEDS: CEFTAZIDIME 2,000 MG in 0.9 % SODIUM CHLORIDE 100 ML 100 MG IV (02:13)
[2023-05-15 04:41] LABS: Basophils Percent Auto 0.1 % (0.2-2.0); Hematocrit 26.2 % (42.0-54.0); Hemoglobin 8.3 g/dL (14.0-18.0); Immature Granulocytes Abs Auto 0.13 10^3/uL (0.00-0.03); Immature Granulocytes Pct Auto 1.4 % (0.0-0.5); Lymphocytes Absolute Auto 0.6 10^3/uL (1.2-3.8); Mean Corpuscular HGB Conc 31.7 g/dL (29.9-35.2); Mean Corpuscular Hemoglobin 28.9 pg (25.9-34.0); Mean Corpuscular Volume 91.3 fL (80.0-94.0); Mean Platelet Volume 10.2 fL (9.5-13.5); Monocytes Absolute Auto 0.4 10^3/uL (0.3-0.8); Monocytes Percent Auto 4.7 % (1.7-12.0); Neutrophils Absolute Auto 7.8 10^3/uL (1.4-6.5); Neutrophils Percent Auto 86.8 % (43.0-75.0); Platelet Count 235 10^3/uL (150-450); Red Blood Count 2.87 10^6/uL (4.70-6.10); Red Cell Distribution Width 14.5 % (11.0-15.0)
[2023-05-15 05:07] LABS: Alanine Aminotransferase 27 U/L (16-63); Albumin Globulin Ratio 0.7; Albumin Level 2.3 g/dL (3.4-5.0); Alkaline Phosphatase 33 U/L (46-116); Anion Gap 9.6; Aspartate Amino Transferase 39 U/L (15-37); BUN Creatinine Ratio 12.1; Bilirubin Total 0.2 mg/dL (0.2-1.0); Calcium 8.8 mg/dL (8.5-10.1); Chloride 110 mmol/L (98-107); Estimated GFR (African America >60 (>=60); Estimated GFR (Non-African Ame >60 (>=60); Globulin 3.5 g/dL; Glucose 208 mg/dL (74-106); Potassium 3.6 mmol/L (3.5-5.1); Sodium 143 mmol/L (136-145); Total Protein 5.8 g/dL (6.4-8.2)
[2023-05-15 05:15] LABS: Lactate/Lactic Acid 2.8 mmol/L (0.4-2.0)
[2023-05-15] MEDS: METHYLPREDNISOLONE SOD SUCC PF 40 MG/ML VIAL IVP ×2 (06:00→11:13)
[2023-05-15] MEDS: OMEPRAZOLE 40 MG CAPSULE.DR PO (06:01)
[2023-05-15] MEDS: VANCOMYCIN HCL 1,000 MG in 0.9 % SODIUM CHLORIDE 250 ML 250 MG IV (06:04)
[2023-05-15] MEDS: ALPRAZOLAM 1 MG TABLET PO (06:08)
[2023-05-15] MEDS: OXYCODONE HCL 15 MG TABLET PO (06:08)
[2023-05-15] MEDS: IPRATROPIUM/ALBUTEROL SULFATE 3 ML AMPUL.NEB IH ×2 (07:18→11:04)
[2023-05-15] MEDS: GABAPENTIN 400 MG CAPSULE PO (08:11)
[2023-05-15] MEDS: DIAZEPAM 5 MG TABLET PO (08:11)
[2023-05-15] MEDS: GUAIFENESIN 600 MG TAB.ER.12H PO (08:11)
[2023-05-15] MEDS: CEFTAZIDIME 2,000 MG in 0.9 % SODIUM CHLORIDE 100 ML 200 MG IV (08:12)
--- NOTE | 2023-05-15 08:45 | XR_ITS ---
The [address] [address] Patient Name: RAJINDER KELLER MRN: [id number] date: 1980 Sex: M Assigned Patient Location: ICU Current Patient Location: ICU Accession/Order Number: [id number] Exam Date: 05/15/2023 09:00 Report Date: 05/15/2023 09:28 At the request of: ABDELRAHMAN FARIAS Procedure: XR chest 1V EXAMINATION: XR chest 1V HISTORY: shortness of breath COMPARISON: XR chest 05/14/2023 FINDINGS: LUNGS: No significant pulmonary parenchymal abnormalities. VASCULATURE: No increased pulmonary vasculature. PLEURA: No pneumothorax, effusion, or pleural thickening. CARDIAC: No cardiomegaly or cardiac silhouette abnormality. MEDIASTINUM: No visible mass or adenopathy. BONES: No fracture or visible bone lesion. OTHER: Negative. XR/XR chest 1V IMPRESSION: 1. Clearing of previously seen infiltrates. No suspicious findings. Electronically authenticated by: JULIA SMITH Date: 05/15/2023 09:28
--- NOTE | 2023-05-15 08:48 | PM.PN ---
Progress Note: Subjective Subjective Interval history: per overnight and check out patient developed increased work of breathing and saturations were dropping on 3 L nasal cannula patient was transferred to the ICU for higher level of care. Chest x-ray was obtained at that time. He was also placed on Vapotherm. This morning patient is back down to 3 L nasal cannula oxygen. He appears comfortable, when he does talk he does become more short of breath. He denies any chest pain, fevers or chills. His mother and father are present at bedside at the time of exam. He had a CTA of the chest which was negative for pulmonary embolism findings were discussed with patient including multi-focal pneumonia present. Also renal ultrasound with right nonobstructive stones also discussed with patient today. Blood pressures are stable, patient is slightly tachycardic but overall feels improved since yesterday per patient. No other issues or concerns at this time. Exam Constitutional Vital Signs, click to edit/add: Last Vital Signs Temp 97.2 F L 05/14/23 23:51 Pulse 121 H 05/15/23 07:34 Resp 20 05/15/23 07:34 BP 129/54 05/15/23 07:34 Pulse Ox 93 L 05/15/23 07:34 O2 Del Method Room Air 05/15/23 07:24 O2 Flow Rate 1 05/14/23 23:53 FiO2 40 05/14/23 06:46 Progress Note: Objective Labs Labs: Short CBC 05/15/23 Range/Units 04:19 WBC 9.0 (4.0-11.0) 10^3/uL Hgb 8.3 L (14.0-18.0) g/dL Hct 26.2 L (42.0-54.0) % Plt Count 235 (150-450) 10^3/uL BMP 05/15/23 04:19 Sodium 143 Potassium 3.6 Chloride 110 H Carbon Dioxide 27.0 BUN 14.0 Creatinine 1.16 Glucose 208 H Calcium 8.8 Liver Function 05/15/23 Range/Units 04:19 Total Bilirubin 0.2 (0.2-1.0) mg/dL AST 39 H (15-37) U/L ALT 27 (16-63) U/L Alkaline Phosphatase 33 L (46-116) U/L Albumin 2.3 L (3.4-5.0) g/dL Progress Note: A&P Assessment and Plan (1) Sepsis: Qualifiers: Sepsis acute organ dysfunction status: without acute organ dysfunction Sepsis type: sepsis due to unspecified organism Qualified Code(s): A41.9 - Sepsis, unspecified organism (2) Community acquired pneumonia: Qualifiers: Laterality: right Lung location: upper lobe of lung Qualified Code(s): J18.9 - Pneumonia, unspecified organism (3) Acute asthma exacerbation: Qualifiers: Asthma severity: mild Asthma persistence: intermittent Qualified Code(s): J45.21 - Mild intermittent asthma with (acute) exacerbation (4) Acute respiratory failure: Qualifiers: Respiratory failure complication: hypoxia and hypercapnia Qualified Code(s): J96.01 - Acute respiratory failure with hypoxia; J96.02 - Acute respiratory failure with hypercapnia (5) Acute kidney injury: (6) PTSD (post-traumatic stress disorder): (7) Insomnia: (8) Chronic pain: (9) Blind:
--- NOTE | 2023-05-15 09:30 | CM.NOTE ---
Rounds made with Dr. Berrios, discussed with pt discharge to home today.
[2023-05-15] MEDS: MORPHINE SULFATE 15 MG TABLET.ER 60 MG PO (09:33)
[2023-05-15] MEDS: BUDESONIDE 0.5 MG/2 ML AMPULE NEB IH (11:04)
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
--- NOTE | 2023-05-15 13:43 | SWNOTE1 ---
SW stopped in and spoke with pt. Pt spoke about possibility of going home today and voiced he was feeling well. Pt voiced he was appreciative of SW coming. SW advised to call anytime and reach out to SW if anything is needed or any resources are needed.
--- NOTE | 2023-05-15 13:58 | PC.NURSE ---
Patient discharged with no complaints at this time. IV removed. Patient walked down to hospital entrance with mother and staff after discharge education was provided.
--- NOTE | 2023-05-16 15:14 | CM.DCFOLLOWU ---
Person spoke with: Rodo How are you feeling? coming along. How is your pain? No pain Did you understand your discharge instructions? Yes Do you have any questions about your discharge instructions? no Were you given any prescriptions at discharge? yes Were you able to get your prescriptions filled? yes Do you understand how to take your medications as ordered? yes Do you have any questions about your follow up appointment and do you plan to keep your follow up appointment? I did have to change to 05/19/23 Is there anything else that you would like to discuss? No, thank you for the call Questions/Comments/Concerns/Other:
== END 2023-05-15 14:05 | disposition home or self-care (01) | DRG 871 ==
LOC: ER 09:23 → MS 10:13 → ICU 05-14 02:59
PROVIDERS: Nurse Practitioner; Nurse Practitioner Acute Care; Admitting Provider Family Medicine; Emergency Provider Emergency Medicine; PCP Family Medicine; Visit Provider Family Medicine
DX: A41.9 Sepsis, unspecified organism (principal); J18.9 Pneumonia, unspecified organism; J96.01 Acute respiratory failure with hypoxia; J96.02 Acute respiratory failure with hypercapnia; J45.901 Unspecified asthma with (acute) exacerbation; N17.9 Acute kidney failure, unspecified; J45.21 Mild intermittent asthma with (acute) exacerbation; F43.12 Post-traumatic stress disorder, chronic; G89.29 Other chronic pain; H54.3 Unqualified visual loss, both eyes; F17.210 Nicotine dependence, cigarettes, uncomplicated; S05.92XS Unspecified injury of left eye and orbit, sequela; S05.91XS Unspecified injury of right eye and orbit, sequela; Z79.899 Other long term (current) drug therapy; Z98.890 Other specified postprocedural states; Z87.442 Personal history of urinary calculi; G47.00 Insomnia, unspecified; K21.9 Gastro-esophageal reflux disease without esophagitis; Z83.3 Family history of diabetes mellitus; Z82.49 Family history of ischemic heart disease and other diseases of the circulatory system; Z80.3 Family history of malignant neoplasm of breast; F41.8 Other specified anxiety disorders; N20.0 Calculus of kidney; N13.9 Obstructive and reflux uropathy, unspecified; V89.2XXS Person injured in unspecified motor-vehicle accident, traffic, sequela
CPT/HCPCS: 0202U; 36415; 36600; 71045; 71260; 76775; 80053; 81001; 82805; 83605; 84145; 85007; 85025; 85027; 87040; 87070; 87804; 87811; 93005; 94640; 94667; 94668; 94761; 94799; 96365; 96366; 96367; 96368; 96372; 96375; 96376; 99285; J0713; J1335; J1650; J1940; J2405; J2920; J2930; J3370; Q9967

== ENCOUNTER 2023-09-29 13:49 | Inpatient (IN) | payer MEDICARE, SELFPAY ==
[2023-09-29] VITALS (30 sets, daily range): BP systolic 122–143; BP diastolic 82–98; PULSE 75–108; TEMP 36.4–36.9; O2SAT 98–100; BMI 52.0; BMI 22.7
--- NOTE | 2023-09-29 14:03 | ECG_ITS ---
The [facility] Test Date: 2023-09-29 Pat Name: RAJINDER KELLER Department: Room: - Gender: Male [employer]: : 1980 Requested By: YUSUF PERDOMO Order Number: [id number] Reading MD: NE KAMINSKI Measurements Intervals [place] Rate: 94 P: 70 MT: 146 QRS: 60 QRSD: 94 T: 56 QT: 368 QTc: 420 Interpretive Statements 1100 Sinus rhythm 9110 normal ECG Compared to ECG 05/13/2023 07:44:20 Sinus tachycardia no longer present Short MT interval no longer present Electronically Signed On 09-29-2023 22:52:19 EDT by NE KAMINSKI
--- NOTE | 2023-09-29 14:04 | XR_ITS ---
The [address] [address] Patient Name: RAJINDER KELLER MRN: [id number] date: 1980 Sex: M Assigned Patient Location: ER Current Patient Location: ER Accession/Order Number: [id number] Exam Date: 09/29/2023 14:39 Report Date: 09/29/2023 14:54 At the request of: STEVAN WHITMAN Procedure: XR chest 1V EXAMINATION: XR chest 1V HISTORY: Altered mental status COMPARISON: XR chest 05/15/2023 FINDINGS: LUNGS: No significant pulmonary parenchymal abnormalities. VASCULATURE: No increased pulmonary vasculature. PLEURA: No pneumothorax, effusion, or pleural thickening. CARDIAC: No cardiomegaly or cardiac silhouette abnormality. MEDIASTINUM: No visible mass or adenopathy. BONES: No fracture or visible bone lesion. OTHER: Negative. XR/XR chest 1V IMPRESSION: 1. No acute cardiopulmonary process. Stable chest. Electronically authenticated by: JULIA SMITH Date: 09/29/2023 14:54
--- NOTE | 2023-09-29 14:04 | CT_ITS ---
The [address] [address] Patient Name: RAJINDER KELLER MRN: [id number] date: 1980 Sex: M Assigned Patient Location: ER Current Patient Location: ER Accession/Order Number: [id number] Exam Date: 09/29/2023 14:40 Report Date: 09/29/2023 14:59 At the request of: STEVAN WHITMAN Procedure: CT head/brain wo con EXAMINATION: CT head/brain wo con HISTORY: Altered mental status COMPARISON: CT head 05/14/2019 TECHNIQUE: Axial CT images were obtained without IV contrast. Dose reduction techniques were achieved by using automated exposure control and/or adjustment of mA and/or kV according to patient size and/or use of iterative reconstruction technique. FINDINGS: BRAIN: No edema, hemorrhage, mass, acute infarction, or inappropriate atrophy. CSF SPACES: No hydrocephalus, subarachnoid hemorrhage, or mass. Appropriate for age. SKULL: No fracture, mass, or other significant visible lesion. SINUSES: No significant mucosal thickening or fluid on the limited views. ORBITS: No appreciable abnormality on the limited views. OTHER: Negative CT/CT head/brain wo con IMPRESSION: 1. No abnormal or suspicious findings to account for patient's symptoms. Electronically authenticated by: JULIA SMITH Date: 09/29/2023 14:59
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
[2023-09-29 14:33] LABS: Basophils Percent Auto 0.1 % (0.2-2.0); Hematocrit 40.8 % (42.0-54.0); Hemoglobin 13.4 g/dL (14.0-18.0); Immature Granulocytes Abs Auto 0.08 10^3/uL (0.00-0.03); Immature Granulocytes Pct Auto 0.4 % (0.0-0.5); Lymphocytes Absolute Auto 1.9 10^3/uL (1.2-3.8); Lymphocytes Percent Auto 9.1 % (20.5-60.0); Mean Corpuscular HGB Conc 32.8 g/dL (29.9-35.2); Mean Corpuscular Hemoglobin 28.2 pg (25.9-34.0); Mean Corpuscular Volume 85.7 fL (80.0-94.0); Mean Platelet Volume 9.5 fL (9.5-13.5); Monocytes Absolute Auto 1.7 10^3/uL (0.3-0.8); Monocytes Percent Auto 8.3 % (1.7-12.0); Neutrophils Absolute Auto 16.9 10^3/uL (1.4-6.5); Neutrophils Percent Auto 82.1 % (43.0-75.0); PCO2 VBG 34.6 mmHg (40.0-52.0); Platelet Count 601 10^3/uL (150-450); Red Blood Count 4.76 10^6/uL (4.70-6.10); Red Cell Distribution Width 15.3 % (11.0-15.0); White Blood Count 20.6 10^3/uL (4.0-11.0); pH VBG 7.529 (7.330-7.430)
[2023-09-29] MEDS: 0.9 % SODIUM CHLORIDE 1,000 ML 1000 ML IV ×2 (14:33→15:38)
[2023-09-29 14:46] LABS: Ammonia <10 umol/L (11-32)
[2023-09-29 14:50] LABS: INR 1.08; Prothrombin Time 11.4 sec (9.0-11.6)
[2023-09-29 14:57] LABS: Alanine Aminotransferase 26 U/L (16-63); Albumin Globulin Ratio 0.9; Albumin Level 4.2 g/dL (3.4-5.0); Alkaline Phosphatase 70 U/L (46-116); Anion Gap 14.7; Aspartate Amino Transferase 22 U/L (15-37); BUN Creatinine Ratio 34.5; Bilirubin Total 0.8 mg/dL (0.2-1.0); Calcium 9.8 mg/dL (8.5-10.1); Carbon Dioxide 28.5 mmol/L (21.0-32.0); Chloride 94 mmol/L (98-107); Estimated GFR (African America >60 (>=60); Estimated GFR (Non-African Ame 57 (>=60); Ethanol <3 mg/dL; Globulin 4.8 g/dL; Glucose 139 mg/dL (74-106); Magnesium 2.4 mg/dL (1.8-2.4); Potassium 3.2 mmol/L (3.5-5.1); Sodium 134 mmol/L (136-145); Thyroid Stimulating Hormone 1.717 uIU/mL (0.358-3.740); Troponin I High Sensitivity <4.0 pg/mL (4.0-76.1)
[2023-09-29 15:12] LABS: Lactate/Lactic Acid 3.2 mmol/L (0.4-2.0)
[2023-09-29 15:48] LABS: PROCALCITONIN <0.05 ng/mL (0.00-0.50)
[2023-09-29 17:05] LABS: Bilirubin Urine NEGATIVE (NEGATIVE); Blood Urine NEGATIVE (NEGATIVE); Clarity Urine CLEAR (CLEAR); Color Urine YELLOW (YELLOW); Glucose Urine UA NEGATIVE (NEGATIVE); Ketones Urine TRACE mg/dL (NEGATIVE); Leukocyte Esterase Urine NEGATIVE (NEGATIVE); Nitrite Urine NEGATIVE (NEGATIVE); Protein Urine 30 mg/dL (NEG/TRACE); Specific Gravity Urine >=1.030 (1.005-1.025); Urobilinogen Urine 0.2 EU/dL (0.2-1.0)
[2023-09-29 17:13] LABS: Urine Microscopic Indicated YES
[2023-09-29 17:26] LABS: Amphetamine Screen Urine NEGATIVE (NEGATIVE); Barbiturates Screen Urine NEGATIVE (NEGATIVE); Benzodiazepines Screen Urine POSITIVE (NEGATIVE); Buprenorphine Screen Urine NEGATIVE (NEGATIVE); Cannabinoid Screen Urine NEGATIVE (NEGATIVE); Cocaine Screen Urine NEGATIVE (NEGATIVE); Methadone Screen Urine NEGATIVE (NEGATIVE); Methamphetamines Screen Urine NEGATIVE (NEGATIVE); Opiate Screen Urine POSITIVE (NEGATIVE); Oxycodone Screen Urine POSITIVE (NEGATIVE); Phencyclidine Screen Urine NEGATIVE (NEGATIVE); Tricyclic Antidepressant Urine POSITIVE (NEGATIVE)
[2023-09-29 17:33] LABS: WBC Urine 0-2 #/HPF (NONE SEEN)
[2023-09-29 17:34] LABS: Bacteria Urine TRACE #/HPF (NONE SEEN); Cast Seen? SEEN #/LPF (NONE SEEN); Crystals Seen? None Seen #/HPF (None Seen); Hyaline Casts Urine RARE; Mucus Urine SMALL (NONE SEEN); Squamous Epithelial Cell Urine RARE #/LPF (NONE/RARE); Urine Culture Indicated NO
[2023-09-29 17:55] LABS: Creatine Kinase 145 U/L (39-308)
[2023-09-29 17:59] LABS: Lactate/Lactic Acid 2.6 mmol/L (0.4-2.0)
[2023-09-29] MEDS: CEFTRIAXONE 1,000 MG in 0.9 % SODIUM CHLORIDE 50 ML 100 MG IV (18:20)
--- NOTE | 2023-09-29 18:20 | CT_ITS ---
[place] [id number] Patient Name: RAJINDER KELLER MRN: [id number] date: 1980 Sex: M Assigned Patient Location: ER Current Patient Location: [place] Accession/Order Number: [id number] Exam Date: 09/29/2023 18:10 Report Date: 09/29/2023 19:06 At the request of: ABDELRAHMAN FARIAS Procedure: CT abdomen pelvis wo con EXAMINATION: CT abdomen pelvis wo con, 09/29/2023 6:10 PM EDT HISTORY: Leukocytosis, ELLEN, history of renal stones COMPARISON: 11/22/2022 TECHNIQUE: CT scan of the abdomen and pelvis was performed without IV contrast. CT dose reduction technique was used, including Automated Exposure Control. FINDINGS: LOWER CHEST: The visualized lungs are clear. LIVER: Unremarkable. GALLBLADDER AND BILIARY SYSTEM: The gallbladder is contracted. There is no intra or extrahepatic biliary ductal dilatation. SPLEEN: Unremarkable. PANCREAS: Unremarkable. ADRENAL GLANDS: Unremarkable. KIDNEYS AND URETERS: There is a 4 mm nonobstructing calculus in the midpole the right kidney. Punctate nonobstructing calculus in the lower pole the left kidney. No ureteral calculus or hydronephrosis. Mild bilateral perinephric stranding. BLADDER: Unremarkable. GASTROINTESTINAL TRACT: No evidence of bowel obstruction. Fluid-filled colon suggesting enteritis in diarrheal state. Mild wall thickening of the second portion of the duodenum without surrounding inflammatory changes. A normal appendix is visualized. VASCULATURE: The abdominal aorta is normal in caliber. RETROPERITONEUM: No lymphadenopathy. PERITONEUM/MESENTERY: No abdominal ascites. No free air. PELVIS: No pelvic ascites or lymphadenopathy. BODY WALL: Tiny fat-containing umbilical hernia. BONES: Moderate loss of disc height at L5-S1. CT/CT abdomen pelvis wo con IMPRESSION: 1. Bilateral nephrolithiasis. No hydronephrosis. 2. Fluid-filled colon suggesting enteritis in diarrheal state. 3. Mild wall thickening of the second portion of the duodenum which may represent duodenitis. Electronically authenticated by: REYMUNDO YEPEZ Date: 09/29/2023 19:06
--- NOTE | 2023-09-29 18:27 | CT_ITS ---
The [address] [address] Patient Name: RAJINDER KELLER MRN: [id number] date: 1980 Sex: M Assigned Patient Location: ER Current Patient Location: [place] Accession/Order Number: [id number] Exam Date: 09/29/2023 18:10 Report Date: 09/29/2023 20:47 At the request of: STEVAN WHITMAN Procedure: CT facial bones wo con EXAM: CT facial bones wo con COMPARISON: None available. CLINICAL INDICATION: left facial swelling TECHNIQUE: Multiplanar CT images of the face without contrast. Dose reduction techniques were achieved by using automated exposure control and/or adjustment of mA and/or kV according to patient size and/or use of iterative reconstruction technique. FINDINGS: Status post interval removal of left upper molar/premolar teeth. Focal left facial/para-maxillary phlegmonous change and abscess formation suspected given that the surgery was performed 2 weeks ago per provided clinical history, evaluation limited without IV contrast. There could be concern for a periodontal infection although no maxillary bony destructive change is seen at this time. Paranasal sinuses are clear. Mastoid air cells are clear. Orbital structures unremarkable. No acute abnormality involving the visualized brain. No evidence of acute osseous abnormality involving the visualized cervical spine. CT/CT facial bones wo con IMPRESSION: Status post interval removal of left upper molar/premolar teeth. Focal left facial/para-maxillary phlegmonous change and abscess formation suspected given that the surgery was performed 2 weeks ago per provided clinical history, evaluation limited without IV contrast. There could be concern for a periodontal infection although no maxillary bony destructive change is seen at this time. Electronically authenticated by: CARA ANDREA Date: 09/29/2023 20:47
[2023-09-29 20:18] LABS: Influenza Virus A PCR NEGATIVE (NEGATIVE); Influenza Virus B PCR NEGATIVE (NEGATIVE)
[2023-09-29 20:19] LABS: Internal Control Within Normal Limits; SARS-CoV-2 Ag reflex to NAA Negative (NEGATIVE)
[2023-09-29] MEDS: ONDANSETRON PF 4 MG/2 ML VIAL IV (21:14)
[2023-09-29] MEDS: ALPRAZOLAM 0.5 MG TABLET 1 MG PO (21:14)
[2023-09-29] MEDS: ENOXAPARIN SODIUM 40 MG/0.4 ML SYRINGE SUBQ (21:14)
[2023-09-29] MEDS: GABAPENTIN 300 MG CAPSULE 600 MG PO (21:14)
[2023-09-29] MEDS: LACTATED RINGER'S SOLUTION 1,000 ML 200 ML IV (21:15)
[2023-09-29] MEDS: LEVOFLOXACIN IN DEXTROSE 5 % 500 MG/100 ML PIGGYBACK 100 MG IV (22:15)
[2023-09-30] VITALS (18 sets, daily range): BP systolic 108–137; BP diastolic 67–84; PULSE 74–108; TEMP 36.4–36.8; O2SAT 97–99
[2023-09-30] MEDS: OXYCODONE HCL 5 MG TABLET 20 MG PO ×2 (03:55→09:11)
[2023-09-30] MEDS: ALPRAZOLAM 0.5 MG TABLET 1 MG PO ×3 (03:56→17:45)
[2023-09-30] MEDS: ONDANSETRON PF 4 MG/2 ML VIAL IV (03:56)
[2023-09-30] MEDS: GABAPENTIN 300 MG CAPSULE 600 MG PO ×3 (05:00→21:05)
[2023-09-30] MEDS: LACTATED RINGER'S SOLUTION 1,000 ML 200 ML IV ×4 (05:00→22:47)
[2023-09-30 05:39] LABS: Basophils Percent Auto 0.1 % (0.2-2.0); Eosinophils Percent Auto 0.1 % (0.9-7.0); Hematocrit 34.5 % (42.0-54.0); Hemoglobin 11.1 g/dL (14.0-18.0); Immature Granulocytes Abs Auto 0.03 10^3/uL (0.00-0.03); Immature Granulocytes Pct Auto 0.2 % (0.0-0.5); Lymphocytes Percent Auto 14.7 % (20.5-60.0); Mean Corpuscular HGB Conc 32.2 g/dL (29.9-35.2); Mean Corpuscular Volume 87.1 fL (80.0-94.0); Mean Platelet Volume 9.6 fL (9.5-13.5); Monocytes Absolute Auto 1.5 10^3/uL (0.3-0.8); Monocytes Percent Auto 10.4 % (1.7-12.0); Neutrophils Absolute Auto 10.3 10^3/uL (1.4-6.5); Neutrophils Percent Auto 74.5 % (43.0-75.0); Platelet Count 423 10^3/uL (150-450); Red Blood Count 3.96 10^6/uL (4.70-6.10); Red Cell Distribution Width 14.9 % (11.0-15.0); White Blood Count 13.9 10^3/uL (4.0-11.0)
[2023-09-30 05:52] LABS: Lactate/Lactic Acid 1.1 mmol/L (0.4-2.0)
[2023-09-30 06:06] LABS: Alanine Aminotransferase 20 U/L (16-63); Albumin Globulin Ratio 0.9; Albumin Level 3.1 g/dL (3.4-5.0); Alkaline Phosphatase 52 U/L (46-116); Anion Gap 10.6; Aspartate Amino Transferase 21 U/L (15-37); BUN Creatinine Ratio 23.3; Bilirubin Total 0.8 mg/dL (0.2-1.0); Calcium 8.6 mg/dL (8.5-10.1); Carbon Dioxide 27.6 mmol/L (21.0-32.0); Chloride 104 mmol/L (98-107); Estimated GFR (African America >60 (>=60); Estimated GFR (Non-African Ame >60 (>=60); Globulin 3.6 g/dL; Glucose 100 mg/dL (74-106); Magnesium 2.1 mg/dL (1.8-2.4); Potassium 3.2 mmol/L (3.5-5.1); Sodium 139 mmol/L (136-145); Total Protein 6.7 g/dL (6.4-8.2)
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
[2023-09-30] MEDS: MORPHINE SULFATE 15 MG TABLET.ER PO ×2 (09:10→21:05)
[2023-09-30] MEDS: ENOXAPARIN SODIUM 40 MG/0.4 ML SYRINGE SUBQ (09:10)
[2023-09-30] MEDS: MULTIVITAMIN TABLET 1 TAB PO (09:11)
[2023-09-30] MEDS: CEFTRIAXONE 1,000 MG in 0.9 % SODIUM CHLORIDE 50 ML 100 MG IV (09:17)
[2023-09-30] MEDS: LEVOFLOXACIN IN DEXTROSE 5 % 750 MG/150 ML IV.SOLN 100 MG IV (10:27)
--- NOTE | 2023-09-30 12:37 | CM.NOTE ---
Rounds made with Dr. Berrios. Dr. Berrios reviews lab/Radiology findings with Rodo. No plan for discharge today.
--- NOTE | 2023-09-30 13:12 | SWNOTE1 ---
Important Message from [employer] reviewed and discussed with patient. Pt. verbalized understanding and signed the form. Original given to patient and copy placed in patient?s chart. SW met with pt to discuss dc needs. Pt voiced he was doing well at home. The last few days just not feeling well and then was not able to take his medications. This threw him into withdrawal, severe, and his family finally decided to bring him to the ED. Pt still has a psychiatrist. Pt is now seeing a palliative doctor that he really likes who is managing meds. Palliative doctor is Lakeisha Shannon. Pt voices no anticipated discharge needs at this time. Pt voiced he is feeling better today.
[2023-09-30] MEDS: ZOLPIDEM TARTRATE 10 MG TABLET PO (21:05)
[2023-10-01] VITALS (12 sets, daily range): BP systolic 121–127; BP diastolic 80–81; PULSE 61–106; TEMP 36.7–37.5; O2SAT 93–97
[2023-10-01] MEDS: OXYCODONE HCL 5 MG TABLET 20 MG PO ×2 (02:14→12:12)
[2023-10-01] MEDS: ALPRAZOLAM 0.5 MG TABLET 1 MG PO ×2 (02:14→09:44)
[2023-10-01] MEDS: LACTATED RINGER'S SOLUTION 1,000 ML 200 ML IV (03:47)
[2023-10-01 04:56] LABS: Basophils Percent Auto 0.3 % (0.2-2.0); Eosinophils Absolute Auto 0.1 10^3/uL (0.0-0.7); Eosinophils Percent Auto 1.4 % (0.9-7.0); Hematocrit 32.7 % (42.0-54.0); Hemoglobin 10.6 g/dL (14.0-18.0); Immature Granulocytes Abs Auto 0.02 10^3/uL (0.00-0.03); Immature Granulocytes Pct Auto 0.2 % (0.0-0.5); Lymphocytes Percent Auto 31.5 % (20.5-60.0); Mean Corpuscular HGB Conc 32.4 g/dL (29.9-35.2); Mean Corpuscular Hemoglobin 28.3 pg (25.9-34.0); Mean Corpuscular Volume 87.4 fL (80.0-94.0); Mean Platelet Volume 9.6 fL (9.5-13.5); Monocytes Percent Auto 10.3 % (1.7-12.0); Neutrophils Absolute Auto 5.4 10^3/uL (1.4-6.5); Neutrophils Percent Auto 56.3 % (43.0-75.0); Platelet Count 310 10^3/uL (150-450); Red Blood Count 3.74 10^6/uL (4.70-6.10); Red Cell Distribution Width 14.7 % (11.0-15.0); White Blood Count 9.5 10^3/uL (4.0-11.0)
[2023-10-01 05:23] LABS: Alanine Aminotransferase 18 U/L (16-63); Albumin Globulin Ratio 0.9; Albumin Level 2.9 g/dL (3.4-5.0); Alkaline Phosphatase 48 U/L (46-116); Anion Gap 11.2; Aspartate Amino Transferase 16 U/L (15-37); BUN Creatinine Ratio 10.3; Bilirubin Total 0.3 mg/dL (0.2-1.0); Calcium 8.8 mg/dL (8.5-10.1); Carbon Dioxide 26.6 mmol/L (21.0-32.0); Chloride 107 mmol/L (98-107); Estimated GFR (African America >60 (>=60); Estimated GFR (Non-African Ame >60 (>=60); Globulin 3.4 g/dL; Glucose 115 mg/dL (74-106); Sodium 142 mmol/L (136-145); Total Protein 6.3 g/dL (6.4-8.2)
[2023-10-01] MEDS: GABAPENTIN 300 MG CAPSULE 600 MG PO (05:24)
[2023-10-01 05:40] LABS: Potassium 2.8 mmol/L (3.5-5.1)
[2023-10-01] MEDS: LEVOFLOXACIN IN DEXTROSE 5 % 750 MG/150 ML IV.SOLN 100 MG IV (08:33)
[2023-10-01] MEDS: ENOXAPARIN SODIUM 40 MG/0.4 ML SYRINGE SUBQ (08:33)
[2023-10-01] MEDS: MORPHINE SULFATE 15 MG TABLET.ER PO (08:33)
[2023-10-01] MEDS: CEFTRIAXONE 1,000 MG in 0.9 % SODIUM CHLORIDE 50 ML 100 MG IV (08:34)
[2023-10-01] MEDS: MULTIVITAMIN TABLET 1 TAB PO (08:35)
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
--- NOTE | 2023-10-01 12:25 | CM.NOTE ---
Rounds made with Dr. Berrios. Patient states feeling much better today. Dr. Berrios discussed labs. Plan is to recheck electrolytes at 13:00 and if ok then possible discharge later today.
[2023-10-01 14:24] LABS: Anion Gap 10.5; BUN Creatinine Ratio 10.2; Carbon Dioxide 28.6 mmol/L (21.0-32.0); Chloride 108 mmol/L (98-107); Estimated GFR (African America >60 (>=60); Estimated GFR (Non-African Ame >60 (>=60); Glucose 115 mg/dL (74-106); Potassium 3.1 mmol/L (3.5-5.1); Sodium 144 mmol/L (136-145)
--- NOTE | 2023-10-02 12:04 | CM.DCFOLLOWU ---
1st attempt 10/02/23, no answer
== END 2023-10-01 15:30 | disposition home or self-care (01) | DRG 871 ==
LOC: ER 17:33 → MS 18:51
PROVIDERS: Physician Assistant; Admitting Provider Family Medicine; Emergency Provider Emergency Medicine Emergency Medical Services; PCP Family Medicine; Visit Provider Family Medicine
DX: A41.9 Sepsis, unspecified organism (principal); G93.41 Metabolic encephalopathy; E87.1 Hypo-osmolality and hyponatremia; N17.9 Acute kidney failure, unspecified; R65.20 Severe sepsis without septic shock; J32.9 Chronic sinusitis, unspecified; E86.0 Dehydration; R53.1 Weakness; F43.10 Post-traumatic stress disorder, unspecified; F19.982 Other psychoactive substance use, unspecified with psychoactive substance-induced sleep disorder; F32.A Depression, unspecified; E87.6 Hypokalemia; K21.9 Gastro-esophageal reflux disease without esophagitis; F41.9 Anxiety disorder, unspecified; G47.00 Insomnia, unspecified; F17.200 Nicotine dependence, unspecified, uncomplicated; Z88.0 Allergy status to penicillin; Z98.890 Other specified postprocedural states; Z79.899 Other long term (current) drug therapy; H54.3 Unqualified visual loss, both eyes; K52.9 Noninfective gastroenteritis and colitis, unspecified
CPT/HCPCS: 36415; 70450; 70486; 71045; 74176; 80048; 80053; 80307; 80320; 81001; 82140; 82550; 82800; 83605; 83690; 83735; 84145; 84443; 84484; 85025; 85610; 87040; 87045; 87502; 93005; 94761; 96361; 96365; 96366; 96368; 96372; 96375; 96376; 99285; J0696; J1650; J2405